=== PATIENT | male | born 1985 | race Caucasian/White ===

== ENCOUNTER 2019-06-18 09:31 | Emergency (ER) | payer BC, OTHER ==
[2019-06-18] MEDS: IBUPROFEN 800 MG TAB PO (10:00)
== END 2019-06-18 11:47 | disposition home or self-care (01) ==
LOC: E/R 09:31
DX: I10 Essential (primary) hypertension (principal); F17.210 Nicotine dependence, cigarettes, uncomplicated
CPT/HCPCS: 71045; 93005; 99284-25